=== PATIENT | female | born 1980 ===

== ENCOUNTER 2025-02-04 07:17 | Day surgery (SDC) | payer OTHER ==
[2025-01-18 12:14] VITALS: BP 153/93
[~2025-02-04] VITALS: Ht 152.4 cm; Wt 68.9 kg
[2025-02-04] MEDS ORDERED: POVIDONE-IODINE 118 ML BOTT TOP ONE (11:27)
[2025-02-04] MEDS ORDERED: IBU600 MG PO (13:45)
== END 2025-02-04 17:45 | disposition home or self-care (01) ==
LOC: CIR.AMB 07:17
PROVIDERS: ATTEND Obstetrics & Gynecology Gynecology
DX: N84.0 Polyp of corpus uteri (principal)